=== PATIENT | male | born 2000 | race Caucasian/White ===

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

== ENCOUNTER → 2020-01-04 | Outpatient (CLI) | payer BC ==
--- NOTE | 2020-01-04 09:57 | Diagnostic Imaging Report ---
INDICATION: Followup fracture left foot. TIME OF EXAM: 9:40 AM. COMPARISON: 12/10/2019. FINDINGS: A healing distal 5th metatarsal fracture is noted. There is callus formation noted on today's study. The fracture line remains clearly visible. The overall alignment is near-anatomic. The remaining metatarsals are intact. The phalanges are intact. The midfoot and hindfoot are unremarkable. IMPRESSION: Healing distal 5th metatarsal fracture. The fracture line does remain visible. Dictated by: Dictated on workstation # [id number]
== END ==
LOC: RAD FS 09:27
PROVIDERS: ATTEND Nurse Practitioner
DX: S92.355D Nondisplaced fracture of fifth metatarsal bone, left foot, subsequent encounter for fracture with routine healing (principal); X58.XXXD Exposure to other specified factors, subsequent encounter
CPT/HCPCS: 73630